=== PATIENT | female | born 1965 | race Hispanic/Latino ===

== ENCOUNTER 2016-08-26 11:43 | Emergency (ER) | payer OTHER ==
[~2016-08-26] VITALS: Ht 167.6 cm; Wt 63.6 kg
[2016-08-26 11:48] VITALS: BP 90/57; PULSE 63; RESP 20; O2SAT 100
[2016-08-26] MEDS ORDERED: 0.9% Sodium Chloride 1,000 ML IV ONE (12:02)
--- NOTE | 2016-08-26 12:02 | ED.REPORT ---
HPI-Abd Pain F 40 and Over Date of Service Aug 26, 2016 ED Provider: Josee Carlson MD 51 year old female with a hx of gallstones (diagnosed 2 months ago) who presents to the ED with a sudden onset of severe RUQ pain at 1100 while shopping at [employer]. The pain migrated to the R mid quadrant and epigastric area with radiation to the back. Pt has had constant mild epigastric pain since her diagnoses of gallstones 2 months ago. The pain was worsening since onset, but improves while examining. This morning the patient had cereal. Additionally, the patient complains of a cough for 3 days which she has been taking Nyquil for. Nursing Notes Stated Complaint: STOMACH PAIN Chief Complaint: Female Abdominal Pain Nursing Notes Reviewed: Yes Allergies: Coded Allergies: No Known Allergies (Verified , 02/03/08) Scheduled PRN oxyCODONE-Acetaminophen 5-325 mg (oxyCODONE-Acetaminophen 5-325 mg) 1 Each Tablet 1-2 TAB PO Q6H PRN PRN For Pain General Time Seen by MD: 12:01 Chief Complaint Abdominal pain Hx Obtained From: Patient Arrived By: Walk-in Sudden in Onset?: Yes Onset Occurred: 1 - 4 hours ago Symptom Duration: Since onset Location: : RUQ Quality: Painful Severity: Current: Moderate Severity: Maximum: Severe Associated with: Denies: Nausea, Vomiting Pertinent Negative: Relieved by nothing Recent Healthcare: Recent doctor visit Past Medical History Past Medical History Gallstones Reports: GERD Past Surgical History None Review of Systems Basic Review of Systems Eyes: Vision NL, No discharge ENT: Hearing NL, No pain, No nasal congestion, No pharyngeal pain Neurologic: NL mental status, No weakness, No numbness Psychiatric: Normal thought content Constitutional: Denies: Fever Respiratory: Reports: Non-productive cough, Denies: Shortness of breath Cardiovascular: Denies: Chest pain GI: Reports: Abdominal pain Complete sys rev & neg: except as marked. Physical Exam Vital Signs Vital Signs (First) Date Time Temp Pulse Resp B/P Pulse Ox O2 Delivery O2 Flow Rate FiO2 08/26/16 11:48 36.1 63 20 90/57 100 Room Air Initial VS: Reviewed Head / Eyes: Atraumatic, Normocephalic, PERRL ENT: Mucous membranes moist, Conjunctiva normal, No scleral icterus Neck: Supple, Full range of motion Extremities: Vascular intact, Neuro intact, No swelling Skin: Warm, Dry, No cyanosis Neurologic: Alert, Oriented, Nonfocal Psychiatric: Mood/affect normal, Behavior normal, Normal thought content General/Constitutional: Awake, Alert Respiratory / Chest: Breath sounds NL, Breath sounds = bilat, No respiratory distress, No rales, No rhonchi, No wheezing, No stridor Cardiovascular: Heart rate NL, Regular rhythm, Heart sounds NL, Peripheral circulation NL Abdomen: Soft, Non-tender Writhing in pain, then stops abruptly, by the time I get to exam the abd exam is benign. Back: Atraumatic, Full range of motion Interpretation & Diagnostics Lab Results Interpretation Result Diagram: 08/26/16 1239 08/26/16 1239 Test 08/26/16 12:39 08/26/16 13:53 White Blood Count 9.1th/mm3 (3.8-10.1) Red Blood Count 4.36mil/mm3 (3.90-5.20) Hemoglobin 13.2g/dL (12.0-15.6) Hematocrit 40.0% (35.0-46.0) Mean Corpuscular Volume 91.7fL (81-100) Mean Corpuscular Hemoglobin 30.3pg (27.0-35.0) Mean Corpuscular Hemoglobin Concent 33.0% (32.0-37.0) Red Cell Distribution Width 12.6% (12.3-15.4) Platelet Count 162bil/L (150-400) Neutrophils (%) (Auto) 81.3% (40-74) Lymphocytes (%) (Auto) 12.6% (14-46) Monocytes (%) (Auto) 5.2% (4-12) Eosinophils (%) (Auto) 0.6% (0-5) Basophils (%) (Auto) 0.1% (0-3) Sodium Level 141mEq/L (134-144) Potassium Level 3.5mEq/L (3.5-5.2) Chloride Level 102mEq/L (97-108) Carbon Dioxide Level 26mmol/L (18-29) Blood Urea Nitrogen 10mg/dL (6-24) Creatinine 0.51mg/dL (0.57-1.00) Estimat Glomerular Filtration Rate 182mL/min (>59) Glucose Level 188mg/dL (60-99) Calcium Level 9.2mg/dL (8.5-10.1) Magnesium Level 1.9mg/dL (1.6-2.6) Total Bilirubin 0.6mg/dL (0.0-1.2) Aspartate Amino Transf (AST/SGOT) 98U/L (0-50) Alanine Aminotransferase (ALT/SGPT) 61U/L (0-32) Alkaline Phosphatase 99U/L (25-150) Troponin T < 0.010ug/L (0.0-0.011) Total Protein 7.5g/dL (6.4-8.4) Albumin 4.0g/dL (3.4-5.0) Lipase 30U/L (13-60) Hold Urine Received (Received) General Lab Results Interp 1: Labs reviewed ECG Interpretation Time: 12:13 Interpreted by: ED physician Normal ECG Interpretation: Normal rate (78), Normal sinus rhythm, No acute ischemic changes, Normal QRS, Normal axis, Normal intervals, Adequate tracing Re-Eval/Medical Decision Re-Evaluation/Progress #1: Time of Eval: 13:33 Re-Evaluation/Progress Note: Pt with no pain while in the ED. Re-Evaluation/Progress #2: Time of Eval: 14:18 Re-Evaluation/Progress Note: Pt updated of labs. Discussed need for cholecystectomy. Pt given option for removal today vs. future operation. Pt had cereal at 1000 this AM. All questions addressed. Re-Evaluation/Progress #3: Time of Eval: 14:52 Re-Evaluation/Progress Note: Pt agrees with plan for f/u with surgeon. All questions addressed. Consultation : Referral / Consult Name: Carlos Taveras MD Call Returned at: 14:30 Note: No surgery today. Will contact her today or Monday and will get surgery done early next week. Counseled Regarding: Diagnosis, Lab results, Need for follow-up, When/why to return to ED Discharge & Departure Primary Impression: Gall stones Additional Impression: Biliary colic Disposition: Home Discharge Condition All VS Reviewed: Yes Condition: Improved Patient Instructions: Cholelithiasis (DC) Additional Instructions: Your pain is consistent with your previous diagnosis of gall stones. The surgeon's office will call you today or on Monday to schedule an appointment for next week. You can use 1-2 Percocet as directed for pain. For fever or severe pain like today, return to the ER. Referrals: Keon Johnston MD (PCP) Scribe Attestation Portions of this note were transcribed by Isabela Hansen. I, (Josee Carlson MD ) personally performed the history, physical exam and medical decision-making; I reviewed and confirmed the accuracy of the information in the transcribed note. Signed by: Isabela Hansen. 08/26/2016, 1419 copies to: Keon Johnston MD, Shawna L MD Aug 26, 2016 12:02 Isabela Hansen Aug 26, 2016 12:11
[2016-08-26] MEDS ORDERED: Ondansetron 2 mg/mL 2 mL Inj IVPUSH PRN (12:05)
[2016-08-26] MEDS ORDERED: HYDROmorphone 0.5 mg/0.5 mL iSecure Syringe IVPUSH PRN (12:05)
[2016-08-26 13:05] LABS: BASOPHILS % (AUTO) 0.1 % (0-3); EOSINOPHILS % (AUTO) 0.6 % (0-5); MONOCYTES % (AUTO) 5.2 % (4-12); Mean Corpuscular Hemoglobin 30.3 pg (27.0-35.0); Mean Corpuscular Volume 91.7 fL (81-100); NEUTROPHILS % (AUTO) 81.3 % (40-74); Platelet Count 162 bil/L (150-400)
[2016-08-26 13:35] LABS: Lipase 30 U/L (13-60); Magnesium 1.9 mg/dL (1.6-2.6)
[2016-08-26 13:40] LABS: TROPONIN T < 0.010 ug/L (0.0-0.011)
[2016-08-26] MEDS ORDERED: OXYC1TAB24 PO (14:49)
[2016-08-26 15:14] VITALS: BP 105/66; PULSE 83; RESP 16; O2SAT 99
[2016-08-26 15:16] VITALS: BP 105/66; PULSE 83; RESP 16; O2SAT 99
[2016-09-06] MEDS ORDERED: MULT-1018 PO (14:36)
[2016-09-06] MEDS ORDERED: IBUP-1827 PO (14:36)
== END 2016-08-26 15:16 | disposition home or self-care (01) ==
LOC: SED 11:43
DX: K80.70 Calculus of gallbladder and bile duct without cholecystitis without obstruction (principal); R05 Cough; K21.9 Gastro-esophageal reflux disease without esophagitis
CPT/HCPCS: 36415; 80053; 83690; 83735; 84484; 85025; 93005; 96360; 99284; J7030

== ENCOUNTER 2016-09-08 12:01 | Day surgery (SDC) | payer OTHER ==
[~2016-09-08] VITALS: Ht 165.1 cm; Wt 63.5 kg
[2016-09-08] VITALS (9 sets, daily range): BP systolic 96–117; BP diastolic 48–75; PULSE 66–97; RESP 14–20; O2SAT 98–100
[~2016-09-08 12:01] MED LIST: IBUP-1827 PO; Lactated Ringer's 1,000 ML IV SCH; MULT-1018 PO
[2016-09-08] MEDS ORDERED: Glycopyrrolate 0.2 mg/mL 5 mL Inj ONE (12:02)
[2016-09-08] MEDS ORDERED: Dexamethasone 4 mg/mL Inj ONE (12:02)
[2016-09-08] MEDS ORDERED: Ondansetron 2 mg/mL 2 mL Inj ONE (12:02)
[2016-09-08] MEDS ORDERED: Rocuronium 10 mg/mL 5 mL Inj ONE (12:02)
[2016-09-08] MEDS ORDERED: Neostigmine 1 mg/mL 5 mL Inj ONE (12:02)
[2016-09-08] MEDS ORDERED: fentaNYL-PF 50 mCg/mL 2 mL Inj ONE (12:02)
[2016-09-08] MEDS ORDERED: Propofol 10,000 mCg/mL 20 mL Inj ONE (12:02)
[2016-09-08] MEDS ORDERED: MetoCLOpramide 5 mg/mL 2 mL Inj ONE (12:02)
[2016-09-08] MEDS ORDERED: Lactated Ringer's 1,000 ML IV ONE (12:30)
--- NOTE | 2016-09-08 15:38 | PCM.HPANE ---
Patient Data Surgeon Admitting Provider: Attending Provider:Milind Robison MD Primary Care Physician:Keon Johnston MD Other Provider:Charo [place] Anesthesia Reason for Visit Gallstones Ht/WT & BMI Height (Feet): 5 Height (Inches): 5.00 Weight (Kilograms): 63.500 Body Mass Index 23.00 Allergies Coded Allergies: gabapentin (Verified Allergy, Unknown, 09/06/16) naproxen (Verified Allergy, Unknown, 09/06/16) omeprazole (Verified Allergy, Unknown, 09/06/16) Uncoded Allergies: CHERATUSSIN COUGH SYRUP (Allergy, Unknown, 09/06/16) Past Anesthesia History Anesthesia History: Denies:: Anesthesia Reactions Diabetes History Hx Diabetes?: No MRSA MRSA: No Medications Hypertension Medication: No Home Meds Incl Beta Kaykay: No Reported Medications Multivitamin (Multi Vitamin Daily)1 Each Tablet1 Each PO DAILY 30 Days Ref 0 09/06/16 Ibuprofen 600 Mg [id number] Mg PO TID PRN For Pain Ref 0 09/06/16 Discontinued Scripts oxyCODONE-Acetaminophen 5-325 mg 1 Each Tablet1-2 Tab PO Q6H PRN For Pain #20 TABLET Prov:Josee Carlson MD 08/26/16 History History of ENT Problems?: No Hx of Heart Problems?: No Cardiovascular History: Denies:: Edema Hypertension Hx of Respiratory Problem?: No Respiratory History: Denies:: Asthma COPD Emphysema Oxygen Administration Pneumonia Tuberculosis Use of C-PAP Machine Use of Inhalers / NEBS Hx Neurologic Problems?: No Neurological History: Denies:: CVA Headaches Multiple Sclerosis Parkinson's Disease Seizures TIA Hx of GI Problems?: Yes Gastrointestinal History: Positive for:: Gall Bladder Disease (current admission problem) Heartburn Denies:: Diverticulitis Gastrointestinal Bleeding Hepatitis Hiatal Hernia Rectal Bleeding Hx of Problems?: No Genitourinary History: Denies:: HX of Hemodialysis Kidney Stones Urinary Tract Infection HX of Peritoneal Dialysis: No Female Hx: Denies:: Endometriosis Pelvic Inflammatory Problems with Breasts? Skin History: Denies:: History Skin Disorders? Pressure Ulcers Hx Musculoskeletal Problems?: Yes Musculoskeletal History: Positive for:: Musculoskeletal Trauma (hx of shoulder tendonitis 2016) Hx of Psycho/Social Problems?: No Psycho Social History: Denies:: Anxiety Bipolar Disorder Hx Depression Suicide Attempt Hx Surgeries?: No Hx Any Other Health Problems?: No Other History: Denies:: Cancer Endocrine Disease Hospitalization Thyroid Disease History Blood Transfusions: Denies:: Blood Transfuse Reaction Blood Transfusions Hx Diabetes: No Hx Alcohol Use: NoHx Substance Use: NoHave You Smoked inLast 12 mo: No Stop/Bang Treated for Sleep Apnea?: No Do You Have a CPAP Machine?: No S-Snoring: Do You Snore Loudly: No T-Tired: feel tired, fatigued: No O-Obsered: Observed not breath: No P-Blood Pressure: treated: No B- Body Mass Index > 35 kg/m2: No A- Age over 50: Yes N- Neck Large Circumference: No G- Gender Male: No SHANE Total Score: 1 SHANE Risk Assessment: Low Risk, <3 Yes Risk Assessment Category Category 1A: Patient has history of documented sleep apnea, and HAS NOT received any narcotic, sedative or anesthesia administration during this stay. Category 1B: Patient has history of documented sleep apnea, and HAS received any narcotic , sedative or anesthesia administration during this stay Category 2: Patient has SUSPECTED Obstructive Sleep Apnea, and HAS received any narcotic , sedative or anesthesia administration during this stay. Category 3: Patient has SUSPECTED Obstructive Sleep Apnea and HAS NOT received narcotic, sedative or anesthesia administration during this stay. Category 4: Outpatient in Procedural Areas with known sleep apnea or who screen positive for High Risk via the STOP/BANG questionnaire. Exam Exam Vital Signs Vital Signs Date Time Temp Pulse Resp B/P Pulse Ox O2 Delivery O2 Flow Rate FiO2 09/08/16 12:25 36.6 97 14 116/75 98 Room Air General Appearance: Oriented X3 HEENT/AIRWAY: MP 2 Lungs: Normal Air Movement Heart: Regular Rate/Rhythm Meds/Labs/Diagnostics Admission Meds Current Medications Scopolamine (Transderm-Scop Patch) 1.5 mg ONCE ONCE TOPICAL Last administered on 09/08/16 13:00; Start 09/08/16 at 05:00; Stop 09/08/16 at 05:01; Status DC Acetaminophen 650 mg 650 mg PREOP ONCE PO Last administered on 09/08/16 13:00 ; Start 09/08/16 at 06:00; Stop 09/08/16 at 06:01; Status DC Lactated Ringer's (Lr) 1,000 ml @ ud STK-MED ONCE IV Last administered on 1/19 /17at 12:30; Start 09/08/16 at 12:30; Stop 09/08/16 at 12:31; Status DC Plan Impression Patient chart reviewed, patient interviewed and anesthestic plan with risks, benefits, and alternatives discussed, and informed consent obtained. NPO Status: confirmed before mn ASA Physical Status: ASA2 Mod Systemic Disease Anesthetic Plan: GA Bene/Risks/Altern/Consents: Yes HP Complete Prior to Induction: Yes Anthony Roman MD Sep 08, 2016 15:38
[2016-09-08] MEDS ORDERED: Bupivacaine-MPF 0.5% W/EPI 30 mL Inj INJ ONE (16:19)
[2016-09-08] MEDS ORDERED: HYDROmorphone 0.5 mg/0.5 mL iSecure Syringe IVPUSH PRN (17:10)
[2016-09-08] MEDS ORDERED: Ondansetron 2 mg/mL 2 mL Inj IVPUSH PRN ×2 (17:10→17:35)
[2016-09-08] MEDS ORDERED: Lactated Ringer's 500 ML IV PRN (17:31)
[2016-09-08] MEDS ORDERED: Lactated Ringer's 1,000 ML IV SCH (17:31)
[2016-09-08] MEDS ORDERED: Dexamethasone 4 mg/mL Inj IVPUSH PRN (17:35)
[2016-09-08] MEDS ORDERED: EPHEDrine Sulfate 50 mg/mL Inj IVPUSH PRN (17:35)
[2016-09-08] MEDS ORDERED: MetoCLOpramide 5 mg/mL 2 mL Inj IVPUSH PRN (17:35)
[2016-09-08] MEDS ORDERED: Phenylephrine 10,000 mCg/mL Inj IVPUSH PRN (17:35)
[2016-09-08] MEDS ORDERED: HYDROmorphone 1 mg/mL Inj IVPUSH PRN (17:35)
--- NOTE | 2016-09-08 17:35 | PCM.ANEP1 ---
Post Anesthesia Phase 1 PACU Phase 1 Assessment Vital Signs Vital Signs Date Time Temp Pulse Resp B/P Pulse Ox O2 Delivery O2 Flow Rate FiO2 09/08/16 17:20 73 18 101/52 100 Simple Mask 10 09/08/16 17:15 37.1 77 15 100/48 100 Simple Mask 10 09/08/16 12:25 36.6 97 14 116/75 98 Room Air Anesthetic Administered: GA Level of Alertness: Awake, talking Pain: No Nausea or Vomiting: No Oxygen Delivery: Room Air Lungs: Normal Air Movement Anthony Roman MD Sep 08, 2016 17:35
--- NOTE | 2016-09-08 17:35 | PCM.ANEP2 ---
Post Anesthesia Evaluation ASA/CMS Post Anesthesia VS in Patient's Normal Range?: Yes Resp Stable; Airway Patent?: Yes CV Function & Hydration Stable: Yes Mental Status Recovered?: Yes Pain control Satisfactory?: Yes N/V Control Satisfactory?: Yes Anthony Roman MD Sep 08, 2016 17:35
[2016-09-08] MEDS: fentaNYL-PF 50 mCg/mL 2 mL Inj IVPUSH PRN ×2 (17:40→17:50)
--- NOTE | 2016-09-08 18:27 | OP ---
[address] [address] OPERATIVE REPORT PATIENT: JANEEN GLASGOW : 1965 MR#: [id number] ADMIT: 09/08/2016 JOB ID: [id number] DATE OF SURGERY: 09/08/2016 ANESTHESIA: General. PREOPERATIVE DIAGNOSIS(ES): Symptomatic cholelithiasis. POSTOPERATIVE DIAGNOSIS(ES): Symptomatic cholelithiasis. OPERATIVE PROCEDURE: Laparoscopic cholecystectomy. SURGEON: Milind Robison MD RAIL DIRECTOR: Berta Fletcher PA-C (the oceanographer assistant was required for the safe and timely completion of the case), and MARCOS Pickard. COMPLICATIONS: None. ESTIMATED BLOOD LOSS: Minimal. CONDITION: Satisfactory. FINDINGS: 1. The gallbladder appeared unremarkable. 2. During entry with the Optiview trocar the retroperitoneum was inadvertently entered. There was no evidence of injury. INDICATION/SIGNIFICANT HISTORY: The patient is a 51-year-old female with a history of episodic right upper quadrant abdominal pain after eating spicy or fatty foods. Evaluation was undertaken, with an ultrasound demonstrated cholelithiasis. She also underwent upper endoscopy which was unremarkable. She was referred to me. After discussion, she elected to undergo cholecystectomy. OPERATIVE TECHNIQUE: The patient was taken to the operating room and placed in supine position. General anesthesia was administered. The abdomen was prepped and draped in standard surgical fashion and a procedural pause was performed. Entry was gained into the abdomen through a small supraumbilical incision using the Optiview trocar. Pneumoperitoneum was begun, but it quickly became apparent that I was in the wrong space. The trocar was removed and then reinserted, easily going into the peritoneal space. Pneumoperitoneum was achieved. I then inspected but could not find any evidence of injury. However, there was some air obviously in the retroperitoneum indicating that I had violated the retroperitoneum. I could not find any evidence of bleeding or other injury, so I elected to proceed with the cholecystectomy. Local anesthetic was injected, followed by insertion of 5 mm ports in the subxiphoid as well as two in the right upper quadrant. The gallbladder was reflected cephalad. There were some dense adhesions from the omentum which were taken down using cautery. Dissection was then begun to identify cystic duct and artery. Critical view of safety was achieved. A clip was placed on the artery and three clips on the duct. The duct was taken sharply and the artery with electrocautery. The remainder of the dissection of the gallbladder off the cystic plate was then completed and the gallbladder removed through the umbilical port site. The camera was then switched to a 5 mm scope and I once again inspected the retroperitoneum. Eventually I found a small entry point just to the left of the aorta. There was no bleeding. This appeared to be well below the level of the duodenum. I then elected to close the umbilical fascia. This was done with an 0 PDS suture under laparoscopic visualization with a suture passer. The lateral ports were then removed under direct visualization, followed by release of pneumoperitoneum. The remaining port was removed and the skin was closed using 4-0 Monocryl. The entire procedure was well tolerated.
--- NOTE | 2016-09-08 18:31 | DRSVH ---
PROCEDURE: CT ABDOMEN AND PELVIS WITH CONTRAST ([id number]) INDICATIONS: S/P lap yonathan- trochar violated retroperitoneum. TECHNIQUE: After the administration of oral and intravenous contrast, 5 mm thick sections acquired from the diap hragms to the symphysis. 5 mm thick coronal and sagittal reformats were performed. For radiation do se reduction, the following was used: automated exposure control, adjustment of mA and/or kV accordi ng to patient size. COMPARISON: None. FINDINGS: Image quality: Excellent. ABDOMEN: Lung bases: Lung bases are clear. Heart size is normal. Solid organs: Liver and spleen are normal in size and enhancement. Diffuse fatty infiltration of the liver is noted. Gallbladder is surgically absent. Biliary system is non-dilated. No free fluid iden tified in the gallbladder fossa Pancreas enhances normally. No adrenal nodules. Kidneys are normal in size and enhancement, without hydronephrosis. Peritoneum and bowel: Stomach, small bowel, and colon loops are normal in caliber and wall thickness . Mild gaseous distention of proximal loops of small bowel noted likely representing a postoperative ileus. No bowel pneumatosis. Scattered free air noted in the intra-peritoneal and retroperitoneal c ompartments compatible with recent laparoscopic cholecystectomy. The appendix is visualized and is n ormal.. Nodes and vessels: No retroperitoneal or mesenteric adenopathy. Aorta and inferior vena cava are no rmal in caliber. Miscellaneous: No ventral hernias. No abdominal wall hematomas. PELVIS: Genitourinary: Bladder wall thickness is normal. Miscellaneous: No inguinal hernias or adenopathy. Bones: No suspicious bony lesions. No vertebral body compression fractures. IMPRESSION: 1. Status post cholecystectomy. 2. Free intraperitoneal and retroperitoneal air compatible with recent laparoscopic cholecystectomy. 3. No free intraperitoneal fluid. 4. Mild gaseous distention of proximal loops of small bowel without raeann dilatation. Finding likel y represents a mild postop ileus. Dictated by: Micheline Sanchez MD, PhD on 09/08/2016 at 18:30 Approved by: Micheline Sanchez MD, PhD on 09/08/2016 at 18:30
--- NOTE | 2016-09-08 18:37 | NUR ---
Arrival to [address], report taken from RAYMOND Mccartney in PACU. outpatient facility physical therapist at bedside for pt exchange. Pt reports pain 4/10 in abdomen that increases with coughing; denies nausea. Family and pt teaching done on CT. SCD's on. 3 lap sites with bandaids and steri-strips are CDI with minimal drainage on R superior site. Addendum: 09/08/16 at 1917 by SARIKA JARRETT RN Sopalamine patch Behind L ear, effective so far for nausea.
[2016-09-08] MEDS: Dextrose 5% Lactated Ringer's 1,000 ML IV SCH (18:42)
[2016-09-08] MEDS: oxyCODONE-Acetamin 5-325 mg Tablet PO PRN ×2 (19:23→23:05)
[2016-09-09] MEDS: Dextrose 5% Lactated Ringer's 1,000 ML IV SCH ×2 (01:06→09:06)
--- NOTE | 2016-09-09 03:18 | NUR ---
Pain Per physicians orders, patient was able to discharge or stay, but because of the pain, the patient and her decided to stay overnight. I explained to the patient that the pain was maybe due to the CO2 and ambulating might help. Pain medication was administered. The patient did ambulate around the hallway and then went back to bed. VSS. Call light within reach. Patient resting comfortably.
[2016-09-09 04:45] VITALS: BP 97/60; PULSE 66; RESP 18; O2SAT 99
[2016-09-09] MEDS: oxyCODONE-Acetamin 5-325 mg Tablet PO PRN ×2 (06:13→10:19)
--- NOTE | 2016-09-09 08:16 | PCM.DISURG ---
Surgical Discharge Instruction Date of Service Sep 09, 2016 Dates of Hospitalization Date of Hospital Admission Providers Admitting Physician: Primary Care Physician: Keon Johnston MD Attending Physician: Milind Robison MD Discharge Diagnosis Discharge Diagnosis cholecystectomy Diet Discharge Diet: No restrictions Activity Discharge Activity-General: Be up and about Dressing and Incisional Care Dressing Care: Allow Steri Stripes to fall off Hygiene: May shower Follow Up Plan Follow Up Plan 2-3 weeks with Ricki Call your provider for: Fever, Chills, Increasing abdominal pain, Nausea, Vomiting Milind Robison MD Sep 09, 2016 08:16
[2016-09-09] MEDS ORDERED: OXYC1TAB24 PO (08:17)
--- NOTE | 2016-09-09 09:13 | PROG NOTE ---
[address] [address] PROGRESS NOTE PATIENT: JANEEN GLASGOW : 1965 MR#: [id number] ADMIT: 09/08/2016 JOB ID: [id number] DATE: 09/09/2016 SUBJECTIVE: The patient is seen on postoperative day one from laparoscopic cholecystectomy. Yesterday during the patient's cholecystectomy, during entry into the abdomen, the retroperitoneum was violated causing me some concern. I therefore elected to get a CT scan after the procedure to ensure that there had been no inadvertent injury. The CT scan looked fine. However, by that time late enough in the evening that I agreed to keep the patient overnight. This morning she is doing fine. She complains of some periumbilical incisional pain. She has tolerated her diet. She has ambulated. OBJECTIVE: She has remained afebrile, hemodynamically normal. This morning she is alert and oriented and comfortable. Her incisions are inspected and clean, dry and intact. Her belly is soft, not significantly tender. ASSESSMENT AND PLAN: This is a 51-year-old female, postoperative day one from laparoscopic cholecystectomy. She can go home this morning. She will follow up with me in 2-3 weeks.
--- NOTE | 2016-09-09 11:01 | NUR ---
DISCHARGE Pt discharged to home with family at 1100. Wheeled off unit to vehicle. A&Ox3, SALMER[place], VSS, Pain tolerable, IV dcd intact, CareNotes and instructions provided on new medication, dc dx and s/sx to seek medical attention, Dressing (4x lap sites with steris) CDI, All personal belongings in hand at dc, Hard copy script provided to pt. All questions/concerns answered prior to leaving. Discharge instructions provided with assist of dividing machine operator helper.
--- NOTE | 2016-09-09 13:49 | PCM.DC.SUR ---
Discharge Summary Date of Service: Date of Hospital Admission: 09/08/2016 Date of Operation(s): 09/08/2016 Date of Discharge: Sep 09, 2016 at 11:00 Diagnosis at Time of Discharge Primary diagnosis: Symptomatic cholelithiasis Other diagnoses: GERD Anxiety History of breast mass Peptic ulcer disease Positive H. pylori Vitamin D deficiency Problems: Operation Laparoscopic cholecystectomy Brief History and Physical: The patient is a 51-year-old female with a history of episodic right upper quadrant abdominal pain after eating spicy or fatty foods. Evaluation was undertaken, with an ultrasound demonstrated cholelithiasis. She also underwent upper endoscopy which was unremarkable. She was referred to Dr. Milind Robison. After discussion, she elected to undergo cholecystectomy Consultants: None. Hospital Course: The patient was taken to the operating room for the above procedure. She tolerated the procedure well and there were no intraoperative complications however upon entering the abdomen the retroperitoneum was inadvertently entered. There was no evidence of injury. Postoperatively the patient underwent an abdominal CT scan which looked fine. She was then kept in the hospital overnight. On her first postsurgical day she was doing well and tolerating a diet. She was able to ambulate. She was afebrile and hemodynamically stable. Her abdominal exam was benign. She was discharged home by Dr. Milind Robison. Pathology: Pending at time of discharge. Disposition: The patient was discharged home on oral analgesics. She was able to ambulate and tolerate oral intake with no nausea or vomiting. Follow-up Plan: Follow-up with Dr. Milind Robison in 2-3 weeks. Ibuprofen (Ibuprofen) 600 Mg Tablet 600 MG PO TID PRN PRN For Pain (Reported) Multivitamin (Multi Vitamin Daily) 1 Each Tablet 1 EACH PO DAILY (Reported) oxyCODONE-Acetaminophen 5-325 mg (oxyCODONE-Acetaminophen 5-325 mg) 1 Each Tablet 1-2 TAB PO Q3H PRN PRN For Pain copies to: Keon Johnston MD, Danielle B PA-C Sep 09, 2016 13:49
--- NOTE | 2016-09-12 14:57 | PATH ---
SURGICAL PATHOLOGY Attending Physician:Milind Robison MD CASE STATUS: Signed Out PATIENT NAME: JANEEN GLASGOW PID: [id number] : 1965 DATE COLLECTED:09/08/2016 23:31 SPECIMEN: Gallbladder CLINICAL HISTORY: GALLSTONES 1). GALLBLADDER FINAL DIAGNOSIS: Gallbladder: Cholelithiasis and cholesterolosis. No evidence of malignancy. ICD10 K80.7, K82.4 GROSS DESCRIPTION: The specimen is received in one formalin filled container labeled with the patient's name, sublabeled "gallbladder" and consists of an opened 7.0 x 2.5 x 1.5 CM gallbladder. The serosa is smooth. The wall is 0.2-0.6 CM in thickness. The mucosa is a light green lyle in color. The lumen contains a light green mucoid material and 2 yellow lyle calculus which range in size from 0.7-1.6 CM in greatest dimension. 5 payable representative sections are submitted in one cassette. 09/09/2016 [facility] MICRO DESCRIPTION: Please see diagnosis. ICD-9 CODES: CPT CODES: 1: 80476 Electronically Signed Out Minna Davenport MD [facility] [address], [place] [address] Technical component performed at [facility], [address] [place] [address] Ave[address], [place], [address]
== END 2016-09-09 11:00 | disposition home or self-care (01) ==
LOC: SAS 12:01 → OSC 18:45 → SAS 09-09 11:00
PROVIDERS: ATTEND General Practice
DX: K80.20 Calculus of gallbladder without cholecystitis without obstruction (principal); K21.9 Gastro-esophageal reflux disease without esophagitis; E55.9 Vitamin D deficiency, unspecified